=== PATIENT | female | born 1945 | race Caucasian/White ===

== ENCOUNTER 2016-06-26 11:29 | Inpatient (IN) | payer OTHER, BC ==
[~2016-06-26] VITALS: Ht 157.5 cm; Wt 67.8 kg
[2016-06-26] VITALS (14 sets, daily range): BP systolic 86–129; BP diastolic 53–77
[2016-06-26 11:59] LABS: BASOPHIL COUNT 0.1 K/uL (0-0.1); EOSINOPHIL (%) 0.7 % (0-5); EOSINOPHIL COUNT 0.1 K/uL (0-0.3); HEMATOCRIT 39.4 % (36.0-46.0); IMMATURE GRANULOCYTE COUNT 0.2 K/uL; INSTRUMENT ABS NEUTROPHIL CT 15.6 K/uL; LYMPHOCYTE COUNT 2.9 K/uL (1.0-2.8); MCH 30.8 PG (29.0-34.0); MCHC 33.5 G/DL (30.0-36.0); MCV 91.8 FL (83-99); MEAN PLAT.VOLUME 9.5 uM^3 (9.5-12.4); MONOCYTE (%) 5.1 % (3-12); NEUTROPHIL COUNT 15.6 K/uL (1.8-6.4); PLATELET COUNT 406 K/uL (156-360); RBC DIS.WIDTH-CV 12.2 % (11.8-14.6); RED BLOOD COUNT 4.29 M/uL (3.80-5.20)
[2016-06-26 12:09] LABS: AMYLASE 49 IU/L (1-118); CHLORIDE 103 mEq/L (99-109); POTASSIUM 3.3 mEq/L (3.7-5.4)
[2016-06-26 12:10] LABS: SODIUM 141 mEq/L (136-147)
[2016-06-26 12:11] LABS: GLUCOSE 192 mg/dL (70-99)
[2016-06-26 12:13] LABS: INTER. NORMALIZED RATIO 1.1; PROTHROMBIN TIME 10.7 (9.2-11.2)
[2016-06-26 12:13] LABS: ANION GAP 12 MEQ/L (2-14)
[2016-06-26 12:14] LABS: SERUM ETHYL ALCOHOL < 10 mg/dL
[2016-06-26 12:15] LABS: GFR ESTIMATE (CALCULATED) > 59 mL/min/
[2016-06-26 12:16] LABS: UREA NITROGEN (BUN) 16 mg/dL (9-23)
[2016-06-26 12:18] LABS: LIPASE 13 U/L (1.0-51.0)
[2016-06-26 12:20] LABS: TROP-I INTERPRETATION NEGATIVE; TROPONIN-I 0.07 ng/mL (0.0-0.30)
[2016-06-26 16:11] LABS: METH RESISTANT S AUREUS PCR NEGATIVE (NEGATIVE)
[2016-06-26 16:16] LABS: PROBE CHECK PASS; SPECIMEN PROCESSING CONTROL PASS
[2016-06-26 20:13] LABS: EOSINOPHIL (%) 0 % (0-5); HEMATOCRIT 35.6 % (36.0-46.0); IMMATURE GRANULOCYTE (%) 0.6 % (0.0-0.7); IMMATURE GRANULOCYTE COUNT 0.1 K/uL; INSTRUMENT ABS NEUTROPHIL CT 15.5 K/uL; MCHC 34.3 G/DL (30.0-36.0); MCV 90.6 FL (83-99); MEAN PLAT.VOLUME 9.7 uM^3 (9.5-12.4); MONOCYTE (%) 3.4 % (3-12); MONOCYTE COUNT 0.6 K/uL (0-0.8); NEUTROPHIL (%) 89.9 % (45-76); NEUTROPHIL COUNT 15.5 K/uL (1.8-6.4); PLATELET COUNT 313 K/uL (156-360); RBC DIS.WIDTH-CV 12.4 % (11.8-14.6); RBC DIS.WIDTH-SD 40.7 % (39-53); RED BLOOD COUNT 3.93 M/uL (3.80-5.20); WHITE BLOOD COUNT 17.2 K/uL (4.1-10.2)
[2016-06-26 21:35] LABS: TROP-I INTERPRETATION POSITIVE
[2016-06-26 21:53] LABS: TROPONIN-I 88.04 ng/mL (0.0-0.30)
[2016-06-27] VITALS (19 sets, daily range): BP systolic 71–117; BP diastolic 33–88
[2016-06-27 03:28] LABS: EOSINOPHIL (%) 0.1 % (0-5); HEMATOCRIT 33.1 % (36.0-46.0); IMMATURE GRANULOCYTE (%) 0.6 % (0.0-0.7); IMMATURE GRANULOCYTE COUNT 0.1 K/uL; INSTRUMENT ABS NEUTROPHIL CT 12.6 K/uL; LYMPHOCYTE COUNT 2.1 K/uL (1.0-2.8); MCH 31.1 PG (29.0-34.0); MCHC 34.4 G/DL (30.0-36.0); MCV 90.2 FL (83-99); MEAN PLAT.VOLUME 9.2 uM^3 (9.5-12.4); MONOCYTE (%) 8.6 % (3-12); MONOCYTE COUNT 1.4 K/uL (0-0.8); NEUTROPHIL (%) 77.9 % (45-76); NEUTROPHIL COUNT 12.6 K/uL (1.8-6.4); PLATELET COUNT 291 K/uL (156-360); RBC DIS.WIDTH-CV 12.4 % (11.8-14.6); RBC DIS.WIDTH-SD 41.2 % (39-53); RED BLOOD COUNT 3.67 M/uL (3.80-5.20); WHITE BLOOD COUNT 16.2 K/uL (4.1-10.2)
[2016-06-27 03:40] LABS: CHLORIDE 103 mEq/L (99-109); SODIUM 139 mEq/L (136-147)
[2016-06-27 03:42] LABS: GLUCOSE 98 mg/dL (70-99)
[2016-06-27 03:43] LABS: ANION GAP 9 MEQ/L (2-14)
[2016-06-27 03:45] LABS: GFR ESTIMATE (CALCULATED) > 59 mL/min/
[2016-06-27 03:46] LABS: UREA NITROGEN (BUN) 17 mg/dL (9-23)
[2016-06-27 04:10] LABS: TROP-I INTERPRETATION POSITIVE; TROPONIN-I 88.17 ng/mL (0.0-0.30)
[2016-06-27 04:43] LABS: HDL CHOLESTEROL 35 MG/DL (Desirable>=50); LDL CHOLESTEROL 133 mg/dL (Desirable<100); NON-HDL CHOLESTEROL 159 mg/dL (Desirable<160); TOTAL CHOLESTEROL 194 mg/dL (Desirable<200); TRIGLYCERIDES 132 MG/DL (Normal: <150)
[2016-06-27 06:39] LABS: Estimated Average Glucose 105 mg/dL (70-123); HEMOGLOBIN A1c (GLYCOHEMOGLOB) 5.3 % HGB (Below 5.7)
[2016-06-27 10:19] LABS: TROP-I INTERPRETATION POSITIVE; TROPONIN-I 43.42 ng/mL (0.0-0.30)
[2016-06-28] VITALS (9 sets, daily range): BP systolic 94–123; BP diastolic 41–65
[2016-06-28 07:20] LABS: ANION GAP 7 MEQ/L (2-14); CHLORIDE 103 MEQ/L (99-109); GFR ESTIMATE (CALCULATED) > 59 mL/min/; GLUCOSE 92 mg/dL (70-99); SAMPLE HEMOLYSIS CHECK 0; SAMPLE ICTERIC CHECK 0; SAMPLE LIPEMIA CHECK 0; SODIUM 138 MEQ/L (136-147); UREA NITROGEN (BUN) 14 mg/dL (9-23)
[2016-06-28] MEDS ORDERED: ASPIR-LOW81 MG PO (11:13)
[2016-06-28] MEDS ORDERED: ATORVASTATIN CA80 MG PO (11:13)
[2016-06-28] MEDS ORDERED: NITROSTAT0.4 MG SL (11:13)
[2016-06-28] MEDS ORDERED: LOPRESSOR25 MG PO (11:13)
[2016-06-28] MEDS ORDERED: LISINOPRIL5 MG PO (11:13)
[2016-06-28] MEDS ORDERED: BRILINTA90 MG PO (11:13)
[2016-06-28] MEDS ORDERED: NICOTINE PATCH1 EAC1 TD (11:13)
== END 2016-06-28 12:32 | disposition home or self-care (01) | DRG 247 ==
LOC: EME → EDBD 11:29 → EME 12:09 → CATH 12:09 → 4WEST 14:10
PROVIDERS: Emergency Medicine; Internal Medicine Cardiovascular Disease
DX: I21.19 ST elevation (STEMI) myocardial infarction involving other coronary artery of inferior wall (principal); I25.10 Atherosclerotic heart disease of native coronary artery without angina pectoris; R07.9 Chest pain, unspecified; I10 Essential (primary) hypertension; E78.5 Hyperlipidemia, unspecified; F17.210 Nicotine dependence, cigarettes, uncomplicated
CPT/HCPCS: 80048; 80061; 81003; 82150; 82550; 82550 91; 82553; 83036; 83690; 84484; 85025; 85025 91; 85347; 85610; 85730; 86850; 86870; 86900; 86901; 86905; 86920; 87641; 93005; 94799; 99281; 99285; C1725; C1769; C1874; C1887; C1894; G0480; J0153; J0461; J1644; J1940; J2250; J2405; J3010; J3246